=== PATIENT | female | born 1950 | race Caucasian/White ===

== ENCOUNTER 2019-11-06 09:47 | Emergency (ER) | payer MEDICARE ==
[2019-11-06] MEDS ORDERED: Triamcinolone Acetonide 40 MG/ML 1 ML SDV IM ONE (10:05)
[2019-11-06] MEDS ORDERED: Ketorolac 60 MG/2 ML SDV IM ONE (10:05)
--- NOTE | 2019-11-06 10:13 | EDM.PDOC ---
ED HPI GENERAL MEDICAL PROBLEM - General Chief Complaint: Lower Extremity Injury/Pain Time Seen by Provider: 11/06/19 10:05 Source of Information: Reports: Patient History Limitations: Reports: No Limitations - History of Present Illness INITIAL COMMENTS - FREE TEXT/NARRATIVE: has history of sciatica on the left side for the past 1.5 yrs in the last 2 weeks has gotten worse, pain radiates down the back of her left leg to the heel ans toes denies any numbness and tingling in the toes denies and does not recall any injuries Onset: Gradual Onset Date: 10/23/19 Duration: Week(s):, Getting Worse, Intermittent Location: Reports: Back Quality: Reports: Ache, Dull Severity: Moderate Improves with: Reports: Heat Therapy, Rest Worsens with: Reports: Movement Context: Reports: Activity Treatments [employer]: Reports: Other (see below) (usually takes tramadol) - Related Data Allergies Allergy/AdvReac Type Severity Reaction Status Date / Time codeine Allergy Cannot Verified 11/06/19 10:05 Remember pseudoephedrine Allergy Cannot Verified 11/06/19 10:05 Remember theophylline Allergy Cannot Verified 11/06/19 10:05 Remember Home Meds: Home Meds Albuterol Sulfate [Ventolin Hfa] 2 puff INH QID 06/09/14 [History] Ascorbic Acid [Vitamin C] 1,000 mg PO BID 06/09/14 [History] Aspirin [Adult Low Dose Aspirin EC] 81 mg PO DAILY 06/09/14 [History] Cetirizine HCl 10 mg PO DAILY 06/09/14 [History] Citalopram [Citalopram HBr] 40 mg PO DAILY 06/09/14 [History] Fluticasone/Salmeterol [Advair 100-50] 1 puff INH BID 06/09/14 [History] Hydrochlorothiazide 12.5 mg PO DAILY 06/09/14 [History] Levothyroxine Sodium 50 mcg PO DAILY 06/09/14 [History] Meloxicam 15 mg PO DAILY 06/09/14 [History] Multivitamins [Childrens Chewable Vitamin] 1 tab PO DAILY 06/09/14 [History] Omeprazole 40 mg PO DAILY 06/09/14 [History] Pramipexole [Mirapex] 0.125 mg PO BID 06/09/14 [History] clonazePAM [Clonazepam] 0.5 mg PO DAILY PRN 06/09/14 [History] diphenhydrAMINE [Benadryl] 100 mg PO DAILY PRN 06/09/14 [History] traMADol [Ultram] 50 mg PO Q6H PRN 06/09/14 [History] Azithromycin [Z-Jose Alberto] 250 mg PO DAILY 06/12/14 [History] predniSONE [Prednisone] 10 mg PO DAILY #60 tablet 06/28/14 [Rx] Baclofen 10 mg PO BID PRN #30 tablet 11/06/19 [Rx] Lidocaine 5% [Lidoderm 5%] 1 patch TOP DAILY #10 patch 11/06/19 [Rx] predniSONE [Prednisone] 50 mg PO DAILY #5 tablet 11/06/19 [Rx] Review of Systems - Review of Systems Review Of Systems: See Below Constitutional: Reports: No Symptoms Eyes: Reports: No Symptoms Ears: Reports: No Symptoms Nose: Reports: No Symptoms Mouth/Throat: Reports: No Symptoms Respiratory: Reports: No Symptoms Cardiovascular: Reports: No Symptoms GI/Abdominal: Reports: No Symptoms Genitourinary: Reports: No Symptoms Musculoskeletal: Reports: Back Pain, Muscle Pain, Muscle Stiffness Skin: Reports: No Symptoms ED EXAM, GENERAL - Physical Exam Exam: See Below Exam Limited By: No Limitations General Appearance: Alert, WD/WN, No Apparent Distress Eye Exam: Bilateral Eye: EOMI Ears: Normal External Exam Nose: Normal Inspection Head: Atraumatic, Normocephalic Neck: Supple. No: Non-Tender Respiratory/Chest: No Respiratory Distress, No Accessory Muscle Use Cardiovascular: Normal Peripheral Pulses GI/Abdominal: Soft, Non-Tender Back Exam: Decreased Range of Motion, Muscle Spasm, Other (pain in the sciatic region , Positive SLR on the left side). No: CVA Tenderness (R), CVA Tenderness (L) Extremities: Leg Pain, Limited Range of Motion Neurological: Alert, Oriented, Abnormal Gait Skin Exam: Warm Course - Vital Signs Last Recorded V/S: Last Vital Signs Temp 36.8 C 11/06/19 09:48 Pulse 81 11/06/19 09:48 Resp 18 11/06/19 09:48 BP 140/73 11/06/19 09:48 Pulse Ox 100 11/06/19 09:48 - Orders/Labs/Meds Orders: Active Orders 24 hr Category Date Time Status Lumbar Spine 2 or 3V [CR] Stat Exams 11/06/19 10:04 Taken Meds: Medications Discontinued Medications Generic Name Dose Route Start Last Admin Trade Name Bobo PRFlori Reason Stop Dose Admin Ketorolac Tromethamine 60 mg 11/06/19 10:05 11/06/19 10:39 Toradol IM 11/06/19 10:06 60 mg ONETIME ONE Administration Triamcinolone Acetonide 40 mg 11/06/19 10:05 11/06/19 10:39 Kenalog-40 IM 11/06/19 10:06 40 mg ONETIME ONE Administration - Re-Assessments/Exams Free Text/Narrative Re-Assessment/Exam: 11/06/19 11:25 pt given prednisone and toradol and symptoms improved Departure - Departure Time of Disposition: 11:30 Disposition: Home, Self-Care 01 Condition: Fair Clinical Impression: Left-sided low back pain with left-sided sciatica, Lumbar paraspinal muscle spasm - Discharge Information *PRESCRIPTION DRUG MONITORING PROGRAM REVIEWED*: Not Applicable *COPY OF PRESCRIPTION DRUG MONITORING REPORT IN PATIENT JAQUELIN: Not Applicable Instructions: Back Exercises, Back Exercises, [id number], Sciatica, Easy-to- Read, Heat Therapy, [id number], Sciatica Rehab-SportsMed Referrals: PCP,None [Ordering Only Provider] - Forms: ED Department Discharge Sepsis Event Note - Focused Exam Vital Signs: Vital Signs Temp Pulse Resp BP Pulse Ox 11/06/19 09:48 36.8 C 81 18 140/73 100 Date Exam was Performed: 11/06/19 Time Exam was Performed: 11:20 - My Orders Last 24 Hours: My Active Orders 11/06/19 10:04 Lumbar Spine 2 or 3V [CR] Stat - Assessment/Plan Last 24 Hours: My Active Orders 11/06/19 10:04 Lumbar Spine 2 or 3V [CR] Stat
--- NOTE | 2019-11-07 11:10 | CR ---
INDICATION: Sciatica left-sided. LUMBOSACRAL SPINE: Frontal and lateral views of the lumbosacral spine were obtained with three images and revealed demineralization suggesting osteoporosis -- correlate clinically. 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 There may be a slight decrease in disc space at L4-5. There is some sclerosis at the L4-5 and L5-S1 apophyseal joints compatible with osteoarthritis. Sacroiliac joints appear to be intact. IMPRESSION: 1. Cannot entirely exclude minimal disc disease at L4-5 -- correlate clinically. 2. Osteoarthritic changes at the apophyseal joints of L4 through S1. 3. Osteoporosis is suggested but should be correlated clinically. DEXA scan may be helpful. 4. Mild dextroconcave rotoscoliosis low middle lumbar spine. MTDD
== END 2019-11-06 11:41 | disposition home or self-care (01) ==
LOC: FB.ED 09:47
DX: M54.42 Lumbago with sciatica, left side (principal); Z88.5 Allergy status to narcotic agent; Z79.82 Long term (current) use of aspirin; Z79.899 Other long term (current) drug therapy
CPT/HCPCS: 72100; 96372; 99283; J1885; J3301

== ENCOUNTER 2021-02-27 17:49 | Emergency (ER) | payer MEDICARE ==
[2021-02-27] MEDS ORDERED: Acetaminophen 500 MG Tab PO STA (18:05)
[2021-02-27] MEDS ORDERED: traMADol 50 MG Tab PO STA (18:05)
--- NOTE | 2021-02-27 18:09 | EDM.PDOC ---
ED HPI GENERAL MEDICAL PROBLEM - General Stated Complaint: FALL Time Seen by Provider: 02/27/21 18:00 Source of Information: Reports: Patient History Limitations: Reports: No Limitations - History of Present Illness INITIAL COMMENTS - FREE TEXT/NARRATIVE: Patient presented to the ED because of Rt hand injury. He fall and landed on her rt hand. - Related Data Allergies Allergy/AdvReac Type Severity Reaction Status Date / Time codeine Allergy Cannot Verified 11/06/19 10:05 Remember pseudoephedrine Allergy Cannot Verified 11/06/19 10:05 Remember theophylline Allergy Cannot Verified 11/06/19 10:05 Remember Home Meds: Home Meds Albuterol Sulfate [Ventolin Hfa] 2 puff INH QID 06/09/14 [History] Ascorbic Acid [Vitamin C] 1,000 mg PO BID 06/09/14 [History] Aspirin [Adult Low Dose Aspirin EC] 81 mg PO DAILY 06/09/14 [History] Cetirizine HCl 10 mg PO DAILY 06/09/14 [History] Citalopram [Citalopram HBr] 40 mg PO DAILY 06/09/14 [History] Fluticasone/Salmeterol [Advair 100-50] 1 puff INH BID 06/09/14 [History] Hydrochlorothiazide 12.5 mg PO DAILY 06/09/14 [History] Levothyroxine Sodium 50 mcg PO DAILY 06/09/14 [History] Meloxicam 15 mg PO DAILY 06/09/14 [History] Multivitamins [Children's Chewable Vitamin] 1 tab PO DAILY 06/09/14 [History] Omeprazole 40 mg PO DAILY 06/09/14 [History] Pramipexole [Mirapex] 0.125 mg PO BID 06/09/14 [History] clonazePAM [Clonazepam] 0.5 mg PO DAILY PRN 06/09/14 [History] diphenhydrAMINE [Benadryl] 100 mg PO DAILY PRN 06/09/14 [History] traMADol [Ultram] 50 mg PO Q6H PRN 06/09/14 [History] Azithromycin [Z-Jose Alberto] 250 mg PO DAILY 06/12/14 [History] predniSONE [Prednisone] 10 mg PO DAILY #60 tablet 06/28/14 [Rx] Baclofen 10 mg PO BID PRN #30 tablet 11/06/19 [Rx] Lidocaine 5% [Lidoderm 5%] 1 patch TOP DAILY #10 patch 11/06/19 [Rx] predniSONE [Prednisone] 50 mg PO DAILY #5 tablet 11/06/19 [Rx] Past Medical History - Past Health History Medical/Surgical History: Denies Medical/Surgical History Social & Family History - Family History Family Medical History: No Pertinent Family History - Caffeine Use Caffeine Use: Reports: Coffee Review of Systems - Review of Systems Review Of Systems: See Below Constitutional: Reports: No Symptoms Eyes: Reports: No Symptoms Ears: Reports: No Symptoms Nose: Reports: No Symptoms Mouth/Throat: Reports: No Symptoms Respiratory: Reports: No Symptoms Cardiovascular: Reports: No Symptoms GI/Abdominal: Reports: No Symptoms Genitourinary: Reports: No Symptoms Musculoskeletal: Reports: Other (Rt hand pain) Skin: Reports: No Symptoms Neurological: Reports: No Symptoms ED EXAM, GENERAL - Physical Exam Exam: See Below Exam Limited By: No Limitations General Appearance: Alert, No Apparent Distress Ears: Normal External Exam, Normal Canal Nose: Normal Inspection, Normal Mucosa, No Blood Throat/Mouth: Normal Inspection, Normal Lips, Normal Teeth, Normal Gums Head: Atraumatic, Normocephalic Neck: Normal Inspection, Supple, Non-Tender, Full Range of Motion Respiratory/Chest: No Respiratory Distress, Lungs Clear, Normal Breath Sounds, No Accessory Muscle Use, Chest Non-Tender Cardiovascular: Normal Peripheral Pulses, Regular Rate, Rhythm, No Edema, No Gallop, No JVD, No Murmur, No Rub GI/Abdominal: Normal Bowel Sounds, Soft, Non-Tender, No Organomegaly, No Distention Back Exam: Normal Inspection, Full Range of Motion Extremities: Normal Inspection, Normal Range of Motion, Other (swelling,berusing rt 5th and 5th metacarpal) Course - Vital Signs Text/Narrative:: xray-see result Tramadol 100 mg po x1 Tylenol 1000 mg po x1 Ortho glass( manually made)splint applied by ED physician - Orders/Labs/Meds Orders: Active Orders 24 hr Category Date Time Status Hand Comp Min 3V Rt [CR] Stat Exams 02/27/21 18:03 Ordered Meds: Medications Discontinued Medications Generic Name Dose Route Start Last Admin Trade Name Freq PRN Reason Stop Dose Admin Acetaminophen 1,000 mg 02/27/21 18:05 02/27/21 18:10 Acetaminophen 500 Mg Tab PO 02/27/21 18:06 1,000 mg NOW STA Administration Tramadol HCl 100 mg 02/27/21 18:05 02/27/21 18:10 Tramadol 50 Mg Tab PO 02/27/21 18:06 100 mg NOW STA Administration Departure - Departure Time of Disposition: 18:35 Disposition: Home, Self-Care 01 Condition: Good Clinical Impression: Fracture of metacarpal bone - Discharge Information Instructions: Metacarpal Fracture, Gzje-ea-Acps Additional Instructions: Please read discharge instructions on fracture Take tramadol 100 mg with tylenol 1000 mg every 8 hours as needed for pain Follow up this week or next week with orthopedic doctor - My Orders Last 24 Hours: My Active Orders 02/27/21 18:03 Hand Comp Min 3V Rt [CR] Stat - Assessment/Plan Last 24 Hours: My Active Orders 02/27/21 18:03 Hand Comp Min 3V Rt [CR] Stat
--- NOTE | 2021-02-27 19:09 | CR ---
INDICATION: Right hand injury. Pain at 5th metacarpophalangeal joint. RIGHT HAND: Three views of the right hand were obtained 02/27/21 and a revealed a comminuted fracture in satisfactory position and alignment with some impaction shortening the 5th metacarpal with the fracture site at the distal metaphysis. Mild osteoarthritic changes are noted at the 5th metacarpophalangeal joint and at the interphalangeal joint of the thumb, 2nd and 3rd metacarpophalangeal joints and DIPJs in general. There is some dystrophic-appearing calcification along the dorsal aspect of the digit #2 overlying the distal metaphysis of the middle phalanx, which may be on the basis of previous trauma with dystrophic soft tissue calcification. Somewhat demineralized appearance is suggested, which may be on the basis of osteomalacia or osteoporosis, and should be correlated clinically. Report was called to ER personnel for Dr. Fang at approximately 1855 hours 02/27/21. LENNIE
== END 2021-02-27 18:50 | disposition home or self-care (01) ==
LOC: FB.ED 17:49
DX: S62.396A Other fracture of fifth metacarpal bone, right hand, initial encounter for closed fracture (principal); Z88.5 Allergy status to narcotic agent; Z88.8 Allergy status to other drugs, medicaments and biological substances; Z79.82 Long term (current) use of aspirin; W18.39XA Other fall on same level, initial encounter
CPT/HCPCS: 29125; 73130; 99283; A9270

== ENCOUNTER 2021-07-08 06:52 | Day surgery (SDC) | payer MEDICARE, SELFPAY ==
[2021-07-08] MEDS ORDERED: Dexamethasone 4 MG/ML 5 ML MDV IVPUSH ONE (06:53)
[2021-07-08] MEDS ORDERED: hydrALAZINE 20 MG/ML SDV IV ONE (06:53)
[2021-07-08] MEDS ORDERED: Neostigmine Methylsulfate 10 MG/10 ML MDV IVPUSH ONE (06:53)
[2021-07-08] MEDS ORDERED: Ondansetron 4 MG/2 ML SDV IVPUSH ONE (06:53)
[2021-07-08] MEDS ORDERED: Lactated Ringers 1,000 ML IV ONE (06:53)
[2021-07-08] MEDS ORDERED: Propofol 200 MG/20 ML SDV IV ONE (06:53)
[2021-07-08] MEDS ORDERED: Rocuronium 100 MG/10 ML MDV IV ONE (06:53)
[2021-07-08] MEDS ORDERED: Lidocaine 2% 5 ML SDV INJECT ONE (06:53)
[2021-07-08] MEDS ORDERED: HYDROmorphone 2 MG/ML SDV IV ONE (06:53)
[2021-07-08] MEDS ORDERED: Glycopyrrolate 0.2 MG/ML 5 ML MDV IV ONE (06:53)
[2021-07-08] MEDS ORDERED: ceFAZolin 1 GM Vial IV ONE (06:53)
[2021-07-08] MEDS ORDERED: Ketorolac 30 MG/ML SDV IVPUSH ONE (06:53)
[2021-07-08] MEDS: Lactated Ringers 1,000 ML IV SCH ×3 (08:00→15:45)
--- NOTE | 2021-07-08 08:59 | PCM.PN ---
- General Info Date of Service: 07/08/21 - Review of Systems Systems Review Comment:: 71-year-old female with symptomatic pannus after weight loss here for panniculectomy. She is medically stable to proceed today. Her recent history and physical is reviewed and no significant changes are noted. I have discussed carefully the proposed panniculectomy with the patient. Expectations and risks have been reviewed. She agrees to proceed. - Patient Data Vitals - Most Recent: Last Vital Signs Temp 98.2 F 07/08/21 07:47 Pulse 59 L 07/08/21 07:47 Resp 16 07/08/21 07:47 BP 132/71 07/08/21 07:47 Pulse Ox 95 07/08/21 07:47 Weight - Most Recent: 198 lb Lab Results Last 24 Hours: Laboratory Results - last 24 hr 07/08/21 Range/Units 07:25 SARS-CoV-2 RNA (ANITHA) Negative (NEGATIVE) Med Orders - Current: Current Medications Lactated Ringer's (Ringers, Lactated) 1,000 mls @ 125 mls/hr IV ASDIRECTED SERG Last Admin: 07/08/21 08:00 Dose: 125 mls/hr Documented by: Sodium Chloride (Sodium Chloride 0.9% 10 Ml Syringe) 10 ml FLUSH ASDIRECTED PRN PRN Reason: Keep Vein Open - Patient Data Lab Results Last 24 hrs: Laboratory Results - last 24 hr 07/08/21 Range/Units 07:25 SARS-CoV-2 RNA (ANITHA) Negative (NEGATIVE) Sepsis Event Note - Focused Exam Vital Signs: Vital Signs Temp Pulse Resp BP Pulse Ox 07/08/21 07:47 98.2 F 59 L 16 132/71 95 - Problem List Review Problem List Initiated/Reviewed/Updated: Yes - My Orders Last 24 Hours: My Active Orders 07/08/21 Breakfast Nothing Per Oral Diet [DIET] 07/08/21 07:15 Patient Status [ADT] Routine Patient to Empty Bladder [RC] ASDIRECTED RT Incentive Spirometry [RC] ASDIRECTED Verify Patient Consent Obtain [RC] ASDIRECTED Lactated Ringers [Ringers, Lactated] 1,000 ml IV ASDIRECTED Sodium Chloride 0.9% [Saline Flush] 10 ml FLUSH ASDIRECTED PRN Peripheral IV Insertion Adult [OM.PC] Routine Sequential Compression Device [OM.PC] Routine - Assessment Assessment:: Symptomatic abdominal wall pannus - Plan Plan:: Panniculectomy
[2021-07-08] MEDS ORDERED: Morphine 2 MG/ML SYRINGE IVPUSH PRN (11:02)
--- NOTE | 2021-07-08 11:02 | PCM.OPNOTE ---
- General Post-Op/Procedure Note Date of Surgery/Procedure: 07/08/21 Operative Procedure(s): Panniculectomy Findings: Large redundant lower abdominal wall pannus Pre Op Diagnosis: Symptomatic abdominal wall pannus Post-Op Diagnosis: Same Anesthesia Technique: General ET Tube Primary Surgeon: Ronnie Caal Pathology: Abdominal wall pannus Output, Urine Amount: 0 EBL in mLs: 50 Surgical Drain/Tube Type: Mic Torres Flat Drain (x2) Complications: None Condition: Good
[2021-07-08] MEDS ORDERED: Albuterol 8 GM Inhaler INH PRN (11:07)
[2021-07-08] MEDS ORDERED: ClonazePAM 0.5 MG Tab PO PRN (11:07)
[2021-07-08] MEDS ORDERED: ceFAZolin 1 GM in Sodium Chloride 0.9% 50 ML IV SCH (11:15)
[2021-07-08] MEDS: Acetaminophen/HYDROcodone 325-5 MG Tab PO PRN ×2 (15:36→21:17)
[2021-07-08] MEDS: REFRESH CELLUVISC EYEBOTH SCH ×2 (17:00→21:18)
[2021-07-08] MEDS: ceFAZolin 1 GM Vial IVPUSH SCH (17:33)
[2021-07-08] MEDS: Sodium Chloride 0.9% 10 ML Syringe FLUSH PRN (17:37)
[2021-07-08] MEDS: diphenhydrAMINE 50 MG Cap PO PRN (17:41)
[2021-07-08] MEDS ORDERED: traZODone 100 MG Tab PO SCH (21:00)
[2021-07-08] MEDS: SALMETEROL INH SCH (21:18)
[2021-07-08] MEDS: FLUTICASONE INH SCH (21:18)
[2021-07-08] MEDS: rOPINIRole 0.5 MG Tab *PTOM PO SCH (21:18)
--- NOTE | 2021-07-08 23:20 | OR ---
DATE OF OPERATION: 07/08/2021 SURGEON: Ronnie Caal MD PREOPERATIVE DIAGNOSIS: Symptomatic abdominal wall pannus. POSTOPERATIVE DIAGNOSIS: Symptomatic abdominal wall pannus. OPERATION PERFORMED: Panniculectomy. INDICATIONS FOR SURGERY: This 71-year-old female has had a history of significant weight loss and has developed a symptomatic lower abdominal wall pannus. The overhang of this pannus contributes to repeated skin infections. She comes for removal of this pannus. FINDINGS: Across the entire lower abdomen, the patient has a prominent abdominal wall pannus. There is some inflammation of the groin area, especially on the right side, but skin quality otherwise appears satisfactory. The underlying fascia also appears normal. PROCEDURE IN DETAIL: The patient was taken to the operating room. She was given general endotracheal anesthesia and the abdomen and inguinal region were sterilely prepped and draped. The proposed outline of the transverse elliptical incision was then made on the skin, and utilizing this outline, skin incision was made excising skin, and then cautery was used to excise the underlying subcutaneous tissue down to the underlying fascia. In this manner segmentally, the pannus is systematically excised down to the underlying fascia. As this was being carried out, hemostasis was assured with use of electrocautery and 2-0 Vicryl ties and suture ligatures to control larger vessels. Once the pannus and the underlying subcutaneous tissue had been removed, full hemostasis was assured and the wound was then closed approximating the subcutaneous tissue with interrupted 2-0 Vicryl and 2 Ash drains were placed, 1 toward each side through separate stab wound incisions. These were secured to the skin with silk suture and connected to bulb suction. Skin incision was approximated with skin marcos. A sterile dressing was placed as well as abdominal binder. The patient was awakened, extubated, and taken from the operating room in satisfactory condition. ESTIMATED BLOOD LOSS: 50 mL. COMPLICATIONS: None. PROGNOSIS: Good. /[id number] LYDIA/DARWIN
[2021-07-09] MEDS: Lactated Ringers 1,000 ML IV SCH (00:18)
[2021-07-09] MEDS: ceFAZolin 1 GM Vial IVPUSH SCH ×2 (00:19→08:09)
[2021-07-09] MEDS: Sodium Chloride 0.9% 10 ML Syringe FLUSH PRN ×2 (00:27→00:33)
[2021-07-09] MEDS: Acetaminophen/HYDROcodone 325-5 MG Tab PO PRN ×3 (02:42→09:56)
[2021-07-09] MEDS: diphenhydrAMINE 50 MG Cap PO PRN (05:48)
[2021-07-09] MEDS: FLUTICASONE INH SCH (08:00)
[2021-07-09] MEDS: SALMETEROL INH SCH (08:00)
--- NOTE | 2021-07-09 08:00 | PCM.SURGPN ---
- General Info Date of Service: 07/09/21 Date of Surgery/Procedure: 07/08/21 POD#: 1 Post-Op Diagnosis: Symptomatic Pannus Functional Status: Reports: Pain Controlled, Other (c/o itching but no rash has developed) - Review of Systems General: Denies: Fever, Chills Pulmonary: Reports: No Symptoms Cardiovascular: Reports: No Symptoms Genitourinary: Denies: Dysuria Skin: Reports: Pruritis (generalized but worse where compression stockings were in place). Denies: Rash - Patient Data Vitals - Most Recent: Last Vital Signs Temp 97.6 F 07/09/21 05:35 Pulse 67 07/09/21 05:35 Resp 16 07/09/21 05:35 BP 107/46 L 07/09/21 05:35 Pulse Ox 96 07/09/21 05:35 Weight - Most Recent: 198 lb I&O - Last 24 Hours: Intake & Output 07/08/21 07/09/21 07/09/21 22:59 06:59 14:59 Intake Total 600 275 Output Total 110 Balance 490 275 Lab Results Last 24 Hrs: Laboratory Results - last 24 hr 07/08/21 07/09/21 07/09/21 Range/Units 07:25 06:15 06:15 Hgb 10.2 L (11.4-15.5) g/dL Hct 31.7 L (34.2-48.2) % Potassium 4.1 (3.5-5.3) mmol/L SARS-CoV-2 RNA (ANITHA) Negative (NEGATIVE) Med Orders - Current: Current Medications Hydrocodone Bitart/Acetaminophen (Acetaminophen/Hydrocodone 325-5 Mg Tab) 1 tab PO Q4H PRN PRN Reason: Pain (mild 1-3) Last Admin: 07/09/21 02:42 Dose: 1 tab Documented by: Hydrocodone Bitart/Acetaminophen (Acetaminophen/Hydrocodone 325-5 Mg Tab) 2 tab PO Q4H PRN PRN Reason: Pain (moderate 4-6) Last Admin: 07/09/21 02:42 Dose: 2 tab Documented by: Albuterol (Albuterol 8 Gm Inhaler) 0 gm INH QID PRN PRN Reason: Shortness of Breath Bupropion HCl (Bupropion 75 Mg Tab *Ptom) 150 mg PO DAILY SERG Cefazolin Sodium (Cefazolin 1 Gm Vial) 1 gm IVPUSH Q8H [facility] Last Admin: 07/09/21 00:19 Dose: 1 gm Documented by: Clonazepam (Clonazepam 0.5 Mg Tab) 0.5 mg PO DAILY PRN PRN Reason: Anxiety Diphenhydramine HCl (Diphenhydramine 50 Mg Cap) 100 mg PO DAILY PRN PRN Reason: Allergies Last Admin: 07/09/21 05:48 Dose: 100 mg Documented by: Fluticasone Propionate (Fluticasone Propionate Nasal Ivel 16 Gm Bottle *Ptom) 0 gm NASBOTH DAILY [facility] Lactated Ringer's (Ringers, Lactated) 1,000 mls @ 50 mls/hr IV ASDIRECTED [facility] Last Admin: 07/09/21 00:18 Dose: 50 mls/hr Documented by: Levothyroxine Sodium (Levothyroxine 175 Mcg Tab *Ptom) 175 mcg PO DAILY@0600 [facility] Last Admin: 07/09/21 05:43 Dose: 175 mcg Documented by: Morphine Sulfate (Morphine 2 Mg/Ml Syringe) 2 mg IVPUSH Q1H PRN PRN Reason: Pain (severe 7-10) Last Admin: 07/09/21 00:32 Dose: 2 mg Documented by: (Citalopram [ Citalopram Hbr] 40 Mg Tablet) *Ptom 40 mg PO DAILY [facility] Refresh Celluvisc * (Ptom) 1 drop EYEBOTH QID [facility] Last Admin: 07/08/21 21:18 Dose: 1 drop Documented by: (Fluticasone/Salmeterol [Advair 500-50] *Ptom 1 puff INH BID [facility] Last Admin: 07/08/21 21:18 Dose: 1 puff Documented by: (Omeprazole [ Omeprazole] 40 Mg ) *Ptom 40 mg PO BEDTIME [facility] Last Admin: 07/08/21 21:17 Dose: 40 mg Documented by: Ropinirole HCl (Ropinirole 0.5 Mg Tab *Ptom) 0.5 mg PO BID [facility] Last Admin: 07/08/21 21:18 Dose: 0.5 mg Documented by: Sodium Chloride (Sodium Chloride 0.9% 10 Ml Syringe) 10 ml FLUSH ASDIRECTED PRN PRN Reason: Keep Vein Open Last Admin: 07/09/21 00:33 Dose: 10 ml Documented by: Trazodone HCl (Trazodone 100 Mg Tab) 150 mg PO BEDTIME SERG Discontinued Medications Lactated Ringer's (Ringers, Lactated) 1,000 mls @ 125 mls/hr IV ASDIRECTED [facility] Last Infusion: 07/08/21 15:38 Dose: Infused Documented by: - Exam Wound/Incisions: Healing Well, Drainage (mild near corners of incision, ROSA's still bloody but not excessive amount), Other (Skin edges intact and healthy). No: Erythema General: Alert, Oriented Lungs: Normal Respiratory Effort GI/Abdominal Exam: Soft Extremities: Normal Inspection, Non-Tender Sepsis Event Note - Evaluation Sepsis Screening Result: No Definite Risk - Focused Exam Vital Signs: Vital Signs Temp Pulse Resp BP Pulse Ox 07/09/21 05:35 97.6 F 67 16 107/46 L 96 07/09/21 02:00 98 F 72 16 100/49 L 93 L 07/08/21 22:00 98.4 F 67 18 107/53 L 97 - Problem List Review Problem List Initiated/Reviewed/Updated: Yes - My Orders Last 24 Hours: Active Orders 24 hr Category Date Time Status Patient Status [ADT] Routine ADT 07/08/21 11:02 Active Ambulate [RC] ASDIRECTED Care 07/08/21 11:02 Active Antiembolic Devices [RC] .Routine Care 07/08/21 11:06 Active Intake and Output [RC] 06,14,22 Care 07/08/21 11:04 Active Oxygen Therapy [RC] PRN Care 07/08/21 11:02 Active RT Incentive Spirometry [RC] ASDIRECTED Care 07/08/21 07:15 Active RT Incentive Spirometry [RC] Q1HWA Care 07/08/21 11:02 Active RT Post Treatment Assessment [RC] Click to Edit Care 07/08/21 11:10 Active Vital Signs [RC] Q4H Care 07/08/21 11:02 Active Regular Diet [DIET] Diet 07/08/21 Lunch Ordered Acetaminophen/HYDROcodone [[place] 325-5 MG] Med 07/08/21 11:02 Active 1 tab PO Q4H PRN Acetaminophen/HYDROcodone [[place] 325-5 MG] Med 07/08/21 11:02 Active 2 tab PO Q4H PRN Albuterol [Ventolin HFA] Med 07/08/21 11:07 Active 0 gm INH QID PRN Citalopram [Citalopram HBr] Med 07/09/21 09:00 Active 40 mg PO DAILY ClonazePAM [KlonoPIN] Med 07/08/21 11:07 Active 0.5 mg PO DAILY PRN Dextran 70/Hypromellose/PF [Genteal Tears 0.1%-0.3% Med 07/08/21 16:00 Active Drop] 1 drop EYEBOTH QID Fluticasone Propionate [Flonase] Med 07/09/21 09:00 Active 0 gm NASBOTH DAILY Fluticasone/Salmeterol [Advair 100-50] Med 07/08/21 21:00 Active 1 puff INH BID Lactated Ringers [Ringers, Lactated] 1,000 ml Med 07/08/21 11:15 Active IV ASDIRECTED Levothyroxine Med 07/09/21 06:00 Active 175 mcg PO DAILY@0600 Morphine Med 07/08/21 11:02 Active 2 mg IVPUSH Q1H PRN Omeprazole [Omeprazole] Med 07/08/21 21:00 Active 40 mg PO BEDTIME Sodium Chloride 0.9% [Saline Flush] Med 07/08/21 07:15 Active 10 ml FLUSH ASDIRECTED PRN buPROPion [Wellbutrin] Med 07/09/21 09:00 Active 150 mg PO DAILY ceFAZolin [Ancef] Med 07/08/21 17:00 Active 1 gm IVPUSH Q8H diphenhydrAMINE [Benadryl] Med 07/08/21 11:07 Active 100 mg PO DAILY PRN rOPINIRole [Requip] Med 07/08/21 21:00 Active 0.5 mg PO BID traZODone Med 07/08/21 21:00 Hold 150 mg PO BEDTIME Abdominal Binder [OM.PC] Per Unit Routine Oth 07/08/21 11:04 Ordered DVT/VTE Prophylaxis Reflex [OM.PC] Per Unit Routine Oth 07/08/21 11:05 Ordered Peripheral IV Insertion Adult [OM.PC] Routine Oth 07/08/21 07:15 Ordered Sequential Compression Device [OM.PC] Routine Oth 07/08/21 07:15 Ordered Sequential Compression Device [OM.PC] Routine Oth 07/08/21 11:02 Ordered Medication Orders Hydrocodone Bitart/Acetaminophen (Acetaminophen/Hydrocodone 325-5 Mg Tab) 1 tab PO Q4H PRN PRN Reason: Pain (mild 1-3) Last Admin: 07/09/21 02:42 Dose: 1 tab Documented by: Admin: 07/08/21 21:17 Dose: 1 tab Documented by: Admin: 07/08/21 15:36 Dose: 1 tab Documented by: RONAK Hydrocodone Bitart/Acetaminophen (Acetaminophen/Hydrocodone 325-5 Mg Tab) 2 tab PO Q4H PRN PRN Reason: Pain (moderate 4-6) Last Admin: 07/09/21 02:42 Dose: 2 tab Documented by: JOHN Albuterol (Albuterol 8 Gm Inhaler) 0 gm INH QID PRN PRN Reason: Shortness of Breath Bupropion HCl (Bupropion 75 Mg Tab *Ptom) 150 mg PO DAILY SERG Cefazolin Sodium (Cefazolin 1 Gm Vial) 1 gm IVPUSH Q8H [facility] Last Admin: 07/09/21 00:19 Dose: 1 gm Documented by: Admin: 07/08/21 17:33 Dose: 1 gm Documented by: RONAK Clonazepam (Clonazepam 0.5 Mg Tab) 0.5 mg PO DAILY PRN PRN Reason: Anxiety Diphenhydramine HCl (Diphenhydramine 50 Mg Cap) 100 mg PO DAILY PRN PRN Reason: Allergies Last Admin: 07/09/21 05:48 Dose: 100 mg Documented by: Admin: 07/08/21 17:41 Dose: 100 mg Documented by: RONAK Fluticasone Propionate (Fluticasone Propionate Nasal Ivel 16 Gm Bottle *Ptom) 0 gm NASBOTH DAILY [facility] Lactated Ringer's (Ringers, Lactated) 1,000 mls @ 50 mls/hr IV ASDIRECTED [facility] Last Admin: 07/09/21 00:18 Dose: 50 mls/hr Documented by: Infusion: 07/09/21 00:18 Dose: 100 mls/hr Documented by: Admin: 07/08/21 15:45 Dose: 100 mls/hr Documented by: RONAK Levothyroxine Sodium (Levothyroxine 175 Mcg Tab *Ptom) 175 mcg PO DAILY@0600 [facility] Last Admin: 07/09/21 05:43 Dose: 175 mcg Documented by: JOHN Morphine Sulfate (Morphine 2 Mg/Ml Syringe) 2 mg IVPUSH Q1H PRN PRN Reason: Pain (severe 7-10) Last Admin: 07/09/21 00:32 Dose: 2 mg Documented by: JOHN (Citalopram [ Citalopram Hbr] 40 Mg Tablet) *Ptom 40 mg PO DAILY [facility] Refresh Celluvisc * (Ptom) 1 drop EYEBOTH QID [facility] Last Admin: 07/08/21 21:18 Dose: 1 drop Documented by: Admin: 07/08/21 17:00 Dose: 1 drop Documented by: RONAK (Fluticasone/Salmeterol [Advair 500-50] *Ptom 1 puff INH BID [facility] Last Admin: 07/08/21 21:18 Dose: 1 puff Documented by: JOHN (Omeprazole [ Omeprazole] 40 Mg ) *Ptom 40 mg PO BEDTIME [facility] Last Admin: 07/08/21 21:17 Dose: 40 mg Documented by: JOHN Ropinirole HCl (Ropinirole 0.5 Mg Tab *Ptom) 0.5 mg PO BID [facility] Last Admin: 07/08/21 21:18 Dose: 0.5 mg Documented by: JOHN Sodium Chloride (Sodium Chloride 0.9% 10 Ml Syringe) 10 ml FLUSH ASDIRECTED PRN PRN Reason: Keep Vein Open Last Admin: 07/09/21 00:33 Dose: 10 ml Documented by: Admin: 07/09/21 00:27 Dose: 10 ml Documented by: Admin: 07/08/21 17:37 Dose: 10 ml Documented by: RONAK Trazodone HCl (Trazodone 100 Mg Tab) 150 mg PO BEDTIME [facility] - Assessment Assessment (Free Text/Narrative):: Stable post op day #1 after panniculectomy - Plan Plan (Free Text/Narrative):: Discharge with drains in place will come into clinic tomorrow for dressing change
[2021-07-09] MEDS: REFRESH CELLUVISC EYEBOTH SCH (08:05)
[2021-07-09] MEDS: rOPINIRole 0.5 MG Tab *PTOM PO SCH (08:06)
[2021-07-09] MEDS ORDERED: Fluticasone Propionate Nasal Spray 16 GM Bottle *PTOM NASBOTH SCH (09:00)
[2021-07-09] MEDS ORDERED: BUPROPION 75 MG PO SCH (09:00)
[2021-07-09] MEDS ORDERED: CITALOPRAM 40 MG PO SCH (09:00)
== END 2021-07-09 13:30 | disposition home or self-care (01) ==
LOC: FB.SDS 06:52 → FB.MS 10:09 → FB.SDS 07-09 13:30
PROVIDERS: ATTEND Surgery
DX: E65 Localized adiposity (principal); E78.5 Hyperlipidemia, unspecified; I10 Essential (primary) hypertension; E03.9 Hypothyroidism, unspecified; K21.9 Gastro-esophageal reflux disease without esophagitis; S62.306A Unspecified fracture of fifth metacarpal bone, right hand, initial encounter for closed fracture; S92.592A Other fracture of left lesser toe(s), initial encounter for closed fracture; Z79.899 Other long term (current) drug therapy; Z01.812 Encounter for preprocedural laboratory examination; Z98.890 Other specified postprocedural states; Z20.822 Contact with and (suspected) exposure to COVID-19
CPT/HCPCS: 15830; 36415; 84132; 85014; 85018; 94150; A9270; J0360; J0690; J1100; J1170; J1885; J2270; J2405; J2704; J2710; J3490; J7120; U0002

== ENCOUNTER 2025-03-17 00:48 | Emergency (ER) | payer MEDICARE | END 2025-03-17 03:28 | disposition home or self-care (01) | LOC: FB.ED 00:48 | DX: S16.1XXA Strain of muscle, fascia and tendon at neck level, initial encounter (principal); S29.012A Strain of muscle and tendon of back wall of thorax, initial encounter; S00.93XA Contusion of unspecified part of head, initial encounter; J45.909 Unspecified asthma, uncomplicated; K21.9 Gastro-esophageal reflux disease without esophagitis; E03.9 Hypothyroidism, unspecified; Z98.84 Bariatric surgery status; Z88.5 Allergy status to narcotic agent; Z88.8 Allergy status to other drugs, medicaments and biological substances; Z79.51 Long term (current) use of inhaled steroids; Z79.82 Long term (current) use of aspirin; Z79.890 Hormone replacement therapy; Z79.899 Other long term (current) drug therapy; W06.XXXA Fall from bed, initial encounter | CPT/HCPCS: 70450; 72125; 72128; 99284 ==